=== PATIENT | female | born 1980 | race Caucasian/White ===

== ENCOUNTER 2019-05-14 11:48 | Emergency (ER) | payer MEDICAID, OTHER ==
[~2019-05-14] VITALS: Ht 165.1 cm; Wt 64.9 kg
--- NOTE | 2019-05-14 12:28 | NUR ---
Patient discharged to home in stable conditon. Written and verbal after care instructions given. Patient verbalizes understanding of instructions. Patient ambulated with stable gait.
[2019-05-14 12:29] VITALS: BP 110/81
== END 2019-05-14 12:30 | disposition home or self-care (01) ==
LOC: ER 11:55
DX: H10.89 Other conjunctivitis (principal); B96.89 Other specified bacterial agents as the cause of diseases classified elsewhere; J06.9 Acute upper respiratory infection, unspecified; Z88.5 Allergy status to narcotic agent; Z88.8 Allergy status to other drugs, medicaments and biological substances
CPT/HCPCS: A4663

== ENCOUNTER 2023-09-04 19:55 | Emergency (ER) | payer MEDICAID, OTHER ==
[~2023-09-04] VITALS: Ht 165.1 cm; Wt 61.2 kg
[2023-09-04] MEDS ORDERED: NITR30OI6 RC (20:16)
[2023-09-04] MEDS ORDERED: NITROGLYCERIN OINT 1 GM PACKET TP ONE ×2 (20:17→20:30)
[2023-09-04 20:25] VITALS: BP 143/87; O2SAT 98
== END 2023-09-04 20:25 | disposition home or self-care (01) ==
LOC: ER 19:59
DX: K64.9 Unspecified hemorrhoids (principal); Z88.5 Allergy status to narcotic agent; Z88.8 Allergy status to other drugs, medicaments and biological substances
CPT/HCPCS: A4606; A4663